=== PATIENT | female | born 1990 | race American Indian/Alaskan Native ===

== ENCOUNTER 2017-09-11 07:30 | Emergency (ER) | payer BC, MEDICAID ==
[2017-09-11 07:42] VITALS: TEMP 98
--- NOTE | 2017-09-11 07:52 | ED PDOC ---
Arrival/HPI <Solis Anna - Last Filed: 09/11/17 09:39> - General Historian: Patient - History of Present Illness Time/Duration: < week Symptom Onset: Gradual Symptom Course: Worsening <Lin Hernandez - Last Filed: 09/11/17 10:12> <Nilesh García - Last Filed: 09/11/17 11:51> - General Chief Complaint: Female Genitourinary Time Seen by Provider: 09/11/17 07:34 - History of Present Illness Narrative History of Present Illness (Text): 09/11/17 07:50 Patient is a 26 year old female with no significant past medical history who presents to the ED for possible abscess. Patient states that 3 days ago she noticed an abscess in her left labia . She thought it was an ingrown hair so she drained it. She states that the abscess then got bigger and more painful. She took doxycycline with some improvement in size however she states that abscess is so painful she is unable to walk. Denies any fevers, chills. (Lin Hernandez) Past Medical History - Provider Review Nursing Documentation Reviewed: Yes - Past Medical History Past Medical History: No Previous - Cardiac Hx Cardiac Disorders: No - Pulmonary Hx Respiratory Disorders: No - Neurological Hx Neurological Disorder: No - HEENT Hx HEENT Disorder: No - Renal Hx Renal Disorder: No - Endocrine/Metabolic Hx Endocrine Disorders: No - Hematological/Oncological Hx Blood Disorders: No - Integumentary Hx Dermatological Disorder: No - Musculoskeletal/Rheumatological Hx Musculoskeletal Disorders: No - Psychiatric Hx Substance Use: No <Lin Hernandez - Last Filed: 09/11/17 10:12> Family/Social History - Physician Review Nursing Documentation Reviewed: Yes Family/Social History: Diabetes Smoking Status: Never Smoked Hx Alcohol Use: No Hx Substance Use: No Hx Substance Use Treatment: No <Lin Hernandez - Last Filed: 09/11/17 10:12> Allergies/Home Meds <Solis Anna - Last Filed: 09/11/17 09:39> <Lin Hernandez - Last Filed: 09/11/17 10:12> <Nilesh García - Last Filed: 09/11/17 11:51> Allergies/Adverse Reactions: Allergies strawberry Allergy (Verified 09/11/17 07:42) RASH Review of Systems - Physician Review All systems were reviewed & negative as marked: Yes - Review of Systems Constitutional: Normal. absent: Fatigue, Fevers Eyes: Normal. absent: Vision Changes ENT: Normal. absent: Hearing Changes Respiratory: Normal. absent: SOB, Cough Cardiovascular: Normal. absent: Chest Pain, Palpitations Gastrointestinal: Normal. absent: Abdominal Pain, Constipation, Diarrhea, Nausea, Vomiting Genitourinary Female: Normal. absent: Dysuria Musculoskeletal: Normal Skin: Abscess Neurological: Normal. absent: Headache, Dizziness <Lin Hernandez - Last Filed: 09/11/17 10:12> Physical Exam <Solis Anna - Last Filed: 09/11/17 09:39> Vital Signs Reviewed: Yes Temperature: Afebrile Blood Pressure: Normal Pulse: Regular Respiratory Rate: Normal Appearance: Positive for: Well-Appearing, Non-Toxic Pain Distress: Moderate Mental Status: Positive for: Alert and Oriented X 3 - Systems Exam Head: Present: Atraumatic, Normocephalic Pupils: Present: PERRL Extroacular Muscles: Present: EOMI Conjunctiva: Present: Normal Mouth: Present: Moist Mucous Membranes Neck: Present: Normal Range of Motion Respiratory/Chest: Present: Clear to Auscultation, Good Air Exchange Cardiovascular: Present: Regular Rate and Rhythm Abdomen: Present: Normal Bowel Sounds. No: Tenderness Upper Extremity: Present: Normal Inspection Lower Extremity: Present: Normal Inspection Skin: Present: Warm, Dry, Abscess (Abscess on left labia majora, no active drainage, indurated, tender to palpation) Psychiatric: Present: Alert, Oriented x 3 <Lin Hernandez - Last Filed: 09/11/17 10:12> <Nilesh García - Last Filed: 09/11/17 11:51> Vital Signs Temp Pulse Resp BP Pulse Ox 09/11/17 10:24 98 F 85 20 128/63 99 09/11/17 08:07 98 F 88 19 133/85 95 09/11/17 07:38 98 F 68 18 112/73 100 Medical Decision Making <Solis Anna - Last Filed: 09/11/17 09:39> <Lin Hernandez - Last Filed: 09/11/17 10:12> <Nilesh García - Last Filed: 09/11/17 11:51> ED Course and Treatment: 09/11/17 08:12 Patient is a 26 year old female with no significant past medical history who presents with left labial abscess. Abscess extremely tender to palpation, no active drainage. Will give Morphine 4mg IVP and perform bedside I+D. 09/11/17 09:54 Patient is s/p bedside I+D. Wound dressed with 4x4. Will discharge with PO antibiotics. Patient to follow up with SUSTAINABILITY ANALYST within 3-4 days. (Lin Hernandez) Seen and examined with resident. 26 year old F p/w abscess to L sided labia majora. On exam, fluctuant tender abscess on lateral L labia. I&D performed with drainage achieved. (Nilesh García) - Medication Orders Current Medication Orders: Discontinued Medications Lidocaine HCl (Lidocaine Hydrochloride Pf 2% 5 Ml) 2 ml IJ ONCE STA Stop: 09/11/17 08:37 Last Admin: 09/11/17 09:30 Dose: 2 ml Morphine Sulfate (Morphine) 4 mg IVP STAT STA Stop: 09/11/17 08:08 Last Admin: 09/11/17 08:27 Dose: 4 mg Re-Assess: KAYLEE Pain Assessment Document 09/11/17 09:27 GMI (Rec: 09/11/17 10:04 GMI [id number]) Pain Reassessment Is this a pain reassessment? No Procedures - Incision and Drainage Site: Lt. pubic region of the labial majora on the external pubic region Blade Size: 11 I & D Procedure: betadine prep, sterile drapes applied <Solis Anna - Last Filed: 09/11/17 09:39> <Lin Hernandez - Last Filed: 09/11/17 10:12> <Nilesh García - Last Filed: 09/11/17 11:51> - Incision and Drainage Progress: wound clean with betadine and alcohol pad, inject with lidocaine 1% 0.5cc, sterile procedure, #11 made 0.5cm incision with approx. 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 Nilesh García for procedure and teaching resident. I discussed with Dr. García that he should put the patient on keflex and bactrim ds for broad spectrum coverage. (Solis Anna) Disposition/Present on Arrival <Solis Anna - Last Filed: 09/11/17 09:39> - Present on Arrival Any Indicators Present on Arrival: No History of DVT/PE: No History of Uncontrolled Diabetes: No Urinary Catheter: No History of Decub. Ulcer: No History Surgical Site Infection Following: None - Disposition Have Diagnosis and Disposition been Completed?: Yes Disposition Time: 09:49 Patient Plan: Discharge <Lin Hernandez - Last Filed: 09/11/17 10:12> <Nilesh García - Last Filed: 09/11/17 11:51> - Disposition Diagnosis: Abscess Disposition: HOME/ ROUTINE Condition: GOOD Discharge Instructions (ExitCare): Skin Abscess, Abscess Incision and Drainage (DC) Additional Instructions: Please continue antibiotics as prescribed Keep area of I+D clean and dry, avoid pools and baths Follow up with SUSTAINABILITY ANALYST within 3-4 days Prescriptions: Cephalexin [Keflex] 500 mg PO Q8H #21 capsule Sulfamethoxazole/Trimethoprim [Bactrim DS 800 mg-160 mg] 1 tab PO Q12H #14 tab Forms: [facility] (Sami), WORK NOTE
[2017-09-11] MEDS ORDERED: Morphine 4 mg/ml ISec IVP STA (08:07)
[2017-09-11] MEDS ORDERED: Lidocaine PF 2% (5 ml) Inj (For Cardiac Arrhy) IJ STA (08:36)
[2017-09-11 10:27] VITALS: BP 128/63; PULSE 85; RESP 20; O2SAT 99
== END 2017-09-11 10:27 | disposition home or self-care (01) ==
LOC: ED 07:30
DX: N76.4 Abscess of vulva (principal)
CPT/HCPCS: 56405; 99285; J2270

== ENCOUNTER 2018-04-28 20:42 | Emergency (ER) | payer BC, MEDICAID ==
[2018-04-28 21:07] VITALS: BMI 30.7
[2018-04-28 21:34] VITALS: BP 130/75; PULSE 86; RESP 18; TEMP 98.3; O2SAT 100
--- NOTE | 2018-04-28 21:35 | ED PDOC ---
Arrival/HPI - General Historian: Patient - Critical Care Critical Care Minutes: 30 minutes - History of Present Illness Narrative History of Present Illness (Text): 04/28/18 21:32 27 year female presents to the hospital complaining of right flank pain that began this morning. Patient states taking a Tylenol with little improvement in symptoms. Patient describes its as a throbbing sensation with no radiation. Patient denies any urinary symptoms. Patient denies any chest pain, shortness of breath, fevers, chills, nausea, vomiting, or any other complaints. Time/Duration: 4-6 hours Symptom Onset: Gradual Symptom Course: Unchanged Quality: Aching, Throbbing Severity Level: 6 Activities at Onset: Rest Context: Sitting Past Medical History - Provider Review Nursing Documentation Reviewed: Yes - Past Medical History Past Medical History: No Previous - Cardiac Hx Cardiac Disorders: No - Pulmonary Hx Respiratory Disorders: No - Neurological Hx Neurological Disorder: No - HEENT Hx HEENT Disorder: No - Renal Hx Renal Disorder: No - Endocrine/Metabolic Hx Endocrine Disorders: No - Hematological/Oncological Hx Blood Disorders: No - Integumentary Hx Dermatological Disorder: No - Musculoskeletal/Rheumatological Hx Musculoskeletal Disorders: No - Psychiatric Hx Substance Use: No - Anesthesia Hx Anesthesia: Yes Hx Anesthesia Reactions: No Hx Malignant Hyperthermia: No Family/Social History - Physician Review Nursing Documentation Reviewed: Yes Family/Social History: No Known Family HX Smoking Status: Never Smoked Hx Alcohol Use: No Hx Substance Use: No Hx Substance Use Treatment: No Allergies/Home Meds Allergies/Adverse Reactions: Allergies strawberry Allergy (Verified 09/11/17 07:42) RASH Review of Systems - Physician Review All systems were reviewed & negative as marked: Yes - Review of Systems Constitutional: Normal. absent: Fatigue, Weight Change Eyes: Normal. absent: Vision Changes ENT: Normal. absent: Hearing Changes, Rhinorrhea Respiratory: Normal. absent: SOB, Cough Cardiovascular: Normal. absent: Chest Pain, Syncope Gastrointestinal: Normal. absent: Abdominal Pain Genitourinary Female: Normal. absent: Dysuria, Frequency Musculoskeletal: Back Pain. absent: Normal, Other Skin: Normal. absent: Rash, Pruritis Neurological: Normal. absent: Headache, Dizziness Endocrine: Normal. absent: Diaphoresis, Polyuria Hemo/Lymphatic: Normal. absent: Adenopathy Psychiatric: Normal. absent: Anxiety, Depression Physical Exam Vital Signs Reviewed: Yes Vital Signs Temp Pulse Resp BP Pulse Ox 04/28/18 21:24 98.3 F 86 18 130/75 100 Temperature: Afebrile Blood Pressure: Normal Pulse: Regular Respiratory Rate: Normal Appearance: Positive for: Well-Appearing, Non-Toxic, Comfortable Pain Distress: None Mental Status: Positive for: Alert and Oriented X 3 - Systems Exam Head: Present: Atraumatic, Normocephalic. No: Abrasion Pupils: Present: PERRL. No: Sluggish Extroacular Muscles: Present: EOMI. No: Gaze Palsy Conjunctiva: Present: Normal. No: Injected Mouth: Present: Moist Mucous Membranes. No: Dry, Normal Teeth Neck: Present: Normal Range of Motion. No: Paraspinal Tenderness, JVD Respiratory/Chest: Present: Clear to Auscultation, Good Air Exchange. No: Wheezes, Tachypneic Cardiovascular: Present: Normal S1, S2. No: Tachycardic Abdomen: Present: Normal Bowel Sounds. No: McBurney's Point Tender, Ostomy Tubes Back: Present: CVA Tenderness Upper Extremity: Present: Normal Inspection. No: Cyanosis, Edema Lower Extremity: Present: Normal Inspection. No: Edema Neurological: Present: CN II-XII Intact, Speech Normal Skin: Present: Dry, Normal Color. No: Rashes, Cold Psychiatric: Present: Oriented x 3, Normal Insight, Normal Concentration Medical Decision Making ED Course and Treatment: 04/28/18 21:35 27 year old female presents with right sided flank pain that began this morning. Plan: Patient 35 weeks gestational age. Patient decided to sign out AMA and go to [facility]. Disucssed with patient the risks of leaving and she verbally acknowledged them. Disposition/Present on Arrival - Present on Arrival Any Indicators Present on Arrival: No History of DVT/PE: No History of Uncontrolled Diabetes: No Urinary Catheter: No History of Decub. Ulcer: No History Surgical Site Infection Following: None - Disposition Have Diagnosis and Disposition been Completed?: No Diagnosis: Flank pain Disposition: AGAINST MEDICAL ADVICE Disposition Time: 21:35 Condition: UNKNOWN Referrals: PCP,NO [Primary Care Provider] - Follow up with primary
== END 2018-04-28 21:27 | disposition left against medical advice (07) ==
LOC: ED 20:42
DX: R10.9 Unspecified abdominal pain (principal)